=== PATIENT | female | born 1965 | race Caucasian/White ===

== ENCOUNTER 2018-12-30 22:30 | Emergency (ER) | payer OTHER, MEDICAID ==
[~2018-12-30] VITALS: Ht 165.1 cm; Wt 71.7 kg
[2018-12-30] MEDS ORDERED: CELEXA40 MG (22:42)
[2018-12-30] MEDS ORDERED: ALEVE220 MG (22:43)
[2018-12-30 23:05] LABS: ABSOLUTE BASOPHILS 0.1 thou/uL (0.0-0.2); ABSOLUTE LYMPHOCYTES 1.6 thou/uL (0.8-5.3); ABSOLUTE MONOCYTES 0.6 thou/uL (0.0-1.2); ABSOLUTE NEUTROPHILS 5.6 thou/uL (1.6-8.1); BASOPHILS 0.9 %; EOSINOPHILS 0.5 %; HEMATOCRIT 35.2 % (37.0-47.0); HEMOGLOBIN 11.9 gm/dL (12.0-15.0); LYMPHOCYTES 20.6 %; MCH 29.9 pg (26.0-34.0); MCHC 33.8 g/dL (28.0-37.0); MCV 88.5 fL (80.0-100.0); MONOCYTES 7.6 %; MPV 7.8 fl. (7.2-11.1); NUCLEATED RBCS 0 /100WBC; PLATELET COUNT* 287 thou/uL (150-400); POLYS 70.4 %; RBC 3.98 mil/uL (4.20-5.00); RDW-CV 13.3 % (10.5-14.5)
[2018-12-30 23:09] LABS: URINE BILIRUBIN NEGATIVE (Negative); URINE BLOOD 3+ (Negative); URINE CLARITY SL CLOUDY; URINE COLOR YELLOW; URINE GLUCOSE-RANDOM NEGATIVE (Negative); URINE KETONES NEGATIVE (Negative); URINE LEUKOCYTES-REFLEX 1+ (Negative); URINE NITRITE-REFLEX NEGATIVE (Negative); URINE PROTEIN NEGATIVE (Negative); URINE UROBILINOGEN 0.2 E.U./dl (0.2-1.0)
[2018-12-30 23:17] LABS: ANION GAP 9 mmol/L (7-16); BUN 11 mg/dL (7-18); CALCIUM 8.8 mg/dL (8.5-10.1); CHLORIDE 101 mmol/L (98-107); CO2 27 mmol/L (21-32); GLUCOSE 104 mg/dL (70-99); POTASSIUM 3.3 mmol/L (3.5-5.1); SODIUM 137 mmol/L (136-145); TROPONIN-I LEVEL <0.06 ng/mL (<0.06)
[2018-12-30 23:18] LABS: ALBUMIN 3.7 g/dL (3.4-5.0); ALKALINE PHOSPHATASE 106 U/L (46-116); NT-PRO BRAIN NAT PEPTIDE 159 pg/mL (<300); SGOT 14 U/L (15-37); SGPT 12 U/L (30-65); TOTAL BILIRUBIN 0.2 mg/dL (<0.1-1.0); TOTAL PROTEIN 7.2 g/dL (6.4-8.2)
[2018-12-30 23:22] LABS: SQUAMOUS 4-10 Moderate /LPF (0-3)
[2018-12-30 23:23] LABS: MUCUS None Seen strn/LPF (None Seen)
[2018-12-30 23:24] LABS: AMP/METHAMP Negative (Negative); BACTERIA-REFLEX 1-9 Few /HPF (None Seen); BARBITURATES Negative (Negative); BENZODIAZEPINES Negative (Negative); CASTS None Seen /LPF (None Seen); COCAINE Negative (Negative); CRYSTALS None Seen /LPF (None Seen); METHADONE Negative (Negative); OPIATES Negative (Negative); PCP Negative (Negative); THC POSITIVE (Negative); URINE RBC >20 Many /HPF (0-2); URINE WBC-REFLEX 0-5 Rare /HPF (0-5)
[2018-12-30 23:49] LABS: INFLUENZA A ANTIGEN None Detected (None Detect); INFLUENZA B ANTIGEN None Detected (None Detect)
[2018-12-31] MEDS ORDERED: DOXYCYCLINE 10100 MG PO (01:21)
[2018-12-31] MEDS ORDERED: NORCO 7.5-3251 EACH PO (01:21)
[2018-12-31 02:32] VITALS: BP 134/78
--- NOTE | 2018-12-31 09:40 | EKG ---
[place] [address] ELECTROCARDIOGRAM REPORT Name: SAADIA OLEARY [id number] Admission: 12/30/18 Attend Phys: Discharge: 12/31/18 Date of : 63 Report #: [id number] THIS REPORT FOR: //name// [facility] ED Test Date: 2018-12-30 Test Time: 22:36:20 Pat Name: SAADIA OLEARY Department: Room: Gender: F Special Officer: JASMIN : 1965 Requested By: Addis Pandey Order Number: [id number] MD: Rocky Lucas Measurements Intervals [place] Rate: 123 P: 83 [place]: 168 QRS: 68 QRSD: 97 T: QT: 307 QTc: 439 Interpretive Statements Sinus tachycardia Consider right atrial enlargement Nonspecific repol abnormality, diffuse leads No previous ECG available for comparison Electronically Signed On 12-31-2018 9:40:23 FILLING TECHNICIAN by Rocky Lucas [email or web address] <ELECTRONICALLY SIGNED> By: Rocky Lucas MD, [facility] 12/31/18 [id number] Rocky Lucas MD, FACC /EPI
== END 2018-12-31 02:20 | disposition home or self-care (01) ==
LOC: M.ERS 22:30
PROVIDERS: Emergency Medicine
DX: J06.9 Acute upper respiratory infection, unspecified (principal); N39.0 Urinary tract infection, site not specified; F41.9 Anxiety disorder, unspecified; I10 Essential (primary) hypertension; Z90.710 Acquired absence of both cervix and uterus; F17.210 Nicotine dependence, cigarettes, uncomplicated